=== PATIENT | female | born 1940 | race Caucasian/White ===

== ENCOUNTER 2017-06-03 12:29 | Outpatient (CLI) | payer MEDICARE, OTHER ==
--- NOTE | 2017-06-03 14:06 | NUR ---
1345 HERE FOR PROLIA INJECTION. EXPLAINED READON OF INJECTION AND SIDE EFFECTS AND INFORMATION GIVEN TO PATIENT.
--- NOTE | 2017-06-03 14:07 | NUR ---
1350 60 MG PROLIA INJECTION GIVEN IN LEFT ARM SUBCUTANEOUS. TOLERATED IT WELL.
--- NOTE | 2017-06-03 14:20 | NUR ---
1415 NO S/S OF REACTIONS FROM PROLIA. DISCHARGED TO HOME.
== END 2017-06-03 14:15 | disposition home or self-care (01) ==
LOC: D.OPS 12:29
DX: M81.0 Age-related osteoporosis without current pathological fracture (principal)

== ENCOUNTER 2017-12-01 13:52 | Outpatient (CLI) | payer MEDICARE, OTHER ==
[~2017-12-01] VITALS: Ht 166.4 cm; Wt 56.8 kg
[2017-12-01 14:12] VITALS: Ht 166.4 cm; Wt 56.8 kg
== END 2017-12-01 14:41 | disposition home or self-care (01) ==
LOC: D.OPS 13:52
DX: M81.0 Age-related osteoporosis without current pathological fracture (principal)

== ENCOUNTER 2018-03-02 10:44 | Emergency (ER) | payer MEDICARE, OTHER ==
[~2018-03-02] VITALS: Ht 166.4 cm; Wt 56.4 kg
[2018-03-02 10:48] VITALS: Ht 166.4 cm; Wt 56.4 kg
[2018-03-02] MEDS ORDERED: ASPIRIN325 MG (10:49)
[2018-03-02 11:25] LABS: BASOPHILS 0.8 % (0-2); EOSINOPHILS 3.8 % (0-7); HEMATOCRIT 37.9 % (36.0-48.0); HEMOGLOBIN 12.6 g/dL (12-16); LYMPHOCYTES 23.2 % (15-50); MCH 31.3 pg (26.0-34.0); MCHC 33.2 g/dL (31.0-37.0); MEAN PLATELET VOLUME 11.5 fL (7.4-10.4); MONOCYTES 15.2 % (2-11); PLATELET COUNT 153 10x3/uL (130-400); RBC 4.03 10x6/uL (4.00-5.40); RDW 12.7 % (11.5-14.5); WBC 4.7 10x3/uL (4.8-10.8)
[2018-03-02 11:37] LABS: ANION GAP 9.2 mmol/L (8-16); BILIRUBIN - TOTAL 0.42 mg/dL (0.2-1.3); CALCIUM 8.1 mg/dL (8.5-10.1); CARBON DIOXIDE 29.5 mmol/L (21.0-32.0); POTASSIUM - SERUM 3.7 mmol/L (3.5-5.1); PROTEIN - SERUM 6.6 g/dL (6.4-8.2)
[2018-03-02 11:43] LABS: APTT 25.3 SECONDS (22.8-39.4)
[2018-03-02 11:48] LABS: INR 0.93 (0.85-1.17); PROTIME 12.1 SECONDS (11.6-15.0)
[2018-03-02 12:36] VITALS: BP 198/72
== END 2018-03-02 13:12 | disposition other institution (70) ==
LOC: D.ER 10:44
PROVIDERS: Family Medicine
DX: I60.9 Nontraumatic subarachnoid hemorrhage, unspecified (principal); R41.82 Altered mental status, unspecified; S00.83XA Contusion of other part of head, initial encounter; V49.9XXA Car occupant (driver) (passenger) injured in unspecified traffic accident, initial encounter; Y93.89 Activity, other specified; Y92.410 Unspecified street and highway as the place of occurrence of the external cause; M79.1 Myalgia; R04.0 Epistaxis

== ENCOUNTER 2018-06-09 12:39 | Outpatient (CLI) | payer MEDICARE, OTHER ==
[~2018-06-09] VITALS: Ht 166.4 cm; Wt 53.6 kg
[~2018-06-09 12:39] MED LIST: ASPIRIN325 MG
[2018-06-09 13:18] VITALS: BP 122/57; Ht 166.4 cm; Wt 53.6 kg
== END 2018-06-09 13:25 | disposition home or self-care (01) ==
LOC: D.OPS 12:39
DX: M81.0 Age-related osteoporosis without current pathological fracture (principal); Z01.812 Encounter for preprocedural laboratory examination

== ENCOUNTER 2019-06-21 14:10 | Outpatient (CLI) | payer MEDICARE, OTHER ==
[~2019-06-21] VITALS: Ht 165.1 cm; Wt 56.4 kg
[2019-06-21 14:25] VITALS: BP 134/48; Ht 165.1 cm; Wt 56.4 kg
--- NOTE | 2019-06-21 14:35 | NUR ---
PT LEAVING OPS AT THIS TIME, NAD NOTED.
== END 2019-06-21 14:35 | disposition home or self-care (01) ==
LOC: D.OPS 14:10
PROVIDERS: ATTEND Family Medicine
DX: M81.0 Age-related osteoporosis without current pathological fracture (principal)

== ENCOUNTER 2019-12-27 13:11 | Outpatient (CLI) | payer MEDICARE, OTHER ==
[~2019-12-27] VITALS: Ht 165.1 cm; Wt 54.5 kg
[2019-12-27 13:33] VITALS: BP 134/64; Ht 165.1 cm; Wt 54.5 kg
== END 2019-12-27 13:30 | disposition home or self-care (01) ==
LOC: D.OPS 13:11
PROVIDERS: ATTEND Family Medicine
DX: M81.0 Age-related osteoporosis without current pathological fracture (principal)